=== PATIENT | male | born 1985 | race Caucasian/White ===

== ENCOUNTER 2021-09-15 23:35 | Emergency (ER) | payer MEDICARE, MEDICAID, SELFPAY ==
--- NOTE | ~2021-09-15 | XR_ITS ---
EXAMINATION: XR HAND, LEFT CLINICAL INFORMATION: Evaluate foreign body, pain COMPARISON: 12/07/2008 TECHNIQUE: PA, lateral, and oblique views of the left hand. FINDINGS: Osseous alignment is anatomic. No fracture identified. There is suggestion of a skin defect between the first and second metacarpals. No radiopaque foreign body is seen. XR/XR hand LT min 3V IMPRESSION: No radiopaque foreign body identified.
[2021-09-16 00:11] VITALS: BP 125/81; PULSE 74; RESP 14; TEMP 36.8; O2SAT 98; BMI 37.5
--- NOTE | 2021-09-16 03:47 | ED.WOUNDLAC ---
HPI - Wound/Laceration General Chief Complaint: Extremity Injury, Lower Stated Complaint: Small hand lac Time Seen by Provider: 09/16/21 03:42 Source: patient Mode of arrival: ambulatory Limitations: no limitations History of Present Illness HPI narrative: drill bit through web space left hand 1st and 2nd digit Onset (ago): minute(s) (prior to arrival ) Extremity Location: left: hand Place: work Patient tetanus UTD: No Context: accidental Associated symptoms: pain Treatments prior to arrival: bandage Related Data Allergies Allergy/AdvReac Type Severity Reaction Status Date / Time cantaloupe [CANTALOUPE] Allergy Unknown ANAPHYLAXIS Unverified 11/12/19 16:59 strawberry [STRAWBERRY] Allergy Unknown ANAPHYLAXIS Unverified 11/12/19 16:59 watermelon [WATERMELON] Allergy Unknown ANAPHYLAXIS Unverified 11/12/19 16:59 Review of Systems Review of Systems: Constitutional : No Fever, No Chills, Cardiovascular : No Chest Pain, No SOB Respiratory : No Dyspnea Gastrointestinal : No abdominal pain Musculoskeletal : No Joint Swelling Skin : No rash, positive skin laceration Neuro : No Weakness, No Numbness Psych : No SI/HI PMFSH Past Medical History Attestation statement: The following information was validated with the patient. Medical History No pertinent past medical history Social History Social History (Updated 09/16/21 @ 04:07 by Tamika Beltrán DO) Patient Tobacco Use Status: Never used Tobacco Advance Directives: No Advance Directives Information Provided: No Physical Exam Vital Signs: Vital Signs: Last Vital Signs Temp 98.2 F 09/16/21 00:11 Pulse 74 09/16/21 00:11 Resp 14 09/16/21 00:11 BP 125/81 09/16/21 00:11 Pulse Ox 98 09/16/21 00:11 O2 Del Method 09/16/21 00:11 BMI result Body Mass Index 37.5 Appearance: Alert. Oriented X3. No acute distress. Eyes: Pupils equal, round and reactive to light. ENT: Pharynx normal. Neck: Normal inspection. Neck supple. CVS: Pulses normal. Respiratory: No respiratory distress. Abdomen: Soft and nontender. Skin: Skin warm and dry. Normal skin color. Extremities: No lower extremity edema. L hand puncture wound 1.5cm subQ web space between thumb and index finger NV intact full ROM of fingers strong adduction and abduction of thumb Neuro: Oriented X 3. No motor deficit. No sensory deficit. MDM - Wound/Laceration MDM Narrative Medical decision making narrative: 35 yo male with drill bit into left hand web space between thumb and index finger NV intact - xray for FB< will need 1 suture to close, has full ROM of fingers, update Tdap. Procedures Laceration Laceration 1: Site: hand Side (If applicable): left Size (cm): 1.5 Description: linear Depth: simple, single layer Local Anesthetic: lidocaine 1% Amount of anesthesia used (mL): 3 Pre-repair: wound explored, irrigated extensively and deep structures intact Skin layer closed with: nylon Size (cm): 5-0 Number of sutures: 2 Technique: simple, interrupted Discharge Plan Discharge Clinical Impression: Puncture wound Patient Disposition: Home, Self-Care Instructions: Puncture Wound (ED), Care For Your Stitches (ED), Diphtheria/Acellular Pertussis/Tetanus Vaccine (DTaP) (By injection) Additional Instructions: return to ED for any worsening symptoms or concerns stitches out in 7 days, okay to shower only no other water besides washing hands after bathroom, keep clean dry and covered monitor for redness, drainage, fevers or other signs of infection stitches can be removed in ER, urgent care center
[2021-09-16] MEDS: Diphth,Pertus(ACell),Tet Adult 0.5 ML SYRINGE IM (05:48)
== END 2021-09-16 06:34 | disposition home or self-care (01) ==
PROVIDERS: Emergency Provider Emergency Medicine
DX: S61.432A Puncture wound without foreign body of left hand, initial encounter (principal); W31.1XXA Contact with metalworking machines, initial encounter; Y93.9 Activity, unspecified; Y92.9 Unspecified place or not applicable; Y99.9 Unspecified external cause status
CPT/HCPCS: 12001; 73130; 90471; 90715; 99282; 99284